=== PATIENT | female | born 1955 | race Caucasian/White ===

== ENCOUNTER → 2021-12-22 | Outpatient (CLI) | payer MEDICARE, BC ==
[~2021-12-22] MED LIST: ASPIRIN EC81 MG PO; DOCUSATE SODIU250 MG PO; HYDROCODONE-AC1 EACH PO; IBU-200200 MG PO; IBUPROFEN600 MG PO; TYLENOL EXTRA500 MG PO; VITAMIN B COMP1 EACH PO; VITAMIN B12 SL; VITAMIN C500 M2 PO; VITAMIN D350 MCG PO; ZINC30 MG PO
[2021-12-22 13:39] LABS: HEMOGLOBIN 14.2 gm/dl (12.3-15.3); RED BLOOD COUNT 4.86 M/UL (4.00-5.10); WHITE BLOOD COUNT 7.4 K/UL (4.5-11.0)
== END ==
LOC: OPSV2 12:30
PROVIDERS: Obstetrics & Gynecology
DX: Z01.818 Encounter for other preprocedural examination (principal); N81.9 Female genital prolapse, unspecified; R94.31 Abnormal electrocardiogram [ECG] [EKG]
CPT/HCPCS: 36415; 71046; 81001; 85025; 93005

== ENCOUNTER → 2021-12-28 | Day surgery (SDC) | payer MEDICARE, BC | END | disposition home or self-care (01) | LOC: OR 06:23 → EDSTATUS 07:30 → CDU 07:30 → OR 08:45 | DX: N81.3 Complete uterovaginal prolapse (principal); D25.9 Leiomyoma of uterus, unspecified; N83.331 Acquired atrophy of right ovary and fallopian tube; K66.0 Peritoneal adhesions (postprocedural) (postinfection); N95.2 Postmenopausal atrophic vaginitis; E78.5 Hyperlipidemia, unspecified; M19.90 Unspecified osteoarthritis, unspecified site; F41.9 Anxiety disorder, unspecified; Z90.49 Acquired absence of other specified parts of digestive tract; Z79.82 Long term (current) use of aspirin; Z79.1 Long term (current) use of non-steroidal anti-inflammatories (NSAID); Z79.899 Other long term (current) drug therapy; Z80.3 Family history of malignant neoplasm of breast; Z98.51 Tubal ligation status; Z79.891 Long term (current) use of opiate analgesic | CPT/HCPCS: C1769; J0690; J1100; J1885; J2001; J2250; J2405; J2704; J2710; J2795; J3010; J7050; J7120 ==

== ENCOUNTER → 2022-03-15 | Outpatient (CLI) | payer MEDICARE, BC | LOC: MAMO 12:59 | DX: Z12.31 Encounter for screening mammogram for malignant neoplasm of breast (principal) | CPT/HCPCS: 77063; 77067 ==